=== PATIENT | female | born 1960 | race Two or more races ===

== ENCOUNTER 2019-12-21 13:34 | Outpatient (CLI) | payer MEDICAID ==
[2019-12-22] MEDS ORDERED: HYDROCHLOROTHIA25 MG ORAL (10:30)
[2019-12-22] MEDS ORDERED: SINGULAIR10 MG ORAL (10:30)
[2019-12-22] MEDS ORDERED: FAMOTIDINE20 MG ORAL (10:30)
[2019-12-22] MEDS ORDERED: AMLODIPINE BES2.5 MG ORAL (10:30)
[2019-12-22] MEDS ORDERED: PROVENTIL INH (10:30)
--- NOTE | 2019-12-26 08:25 | Consultation ---
DATE OF CONSULTATION: 12/21/2019 CONSULTING PHYSICIAN: Suresh Ng MD. CHIEF COMPLAINT: Rectal bleeding. PAST MEDICAL HISTORY: 1. History of uterine fibroids. 2. Hypertension. 3. Diabetes. 4. Asthma. 5. COPD. 6. Hypercholesterolemia. 7. Depression. PAST SURGICAL HISTORY: Cholecystectomy and . MEDICATIONS: Please see medication reconciliation list. FAMILY HISTORY: No family history of GI malignancy. SOCIAL HISTORY: The patient denies any tobacco or alcohol, but the patient smokes marijuana. ALLERGIES: . REVIEW OF SYSTEMS: Positive for diarrhea and rectal bleeding, never had a colonoscopy before. PHYSICAL EXAMINATION: VITAL SIGNS: Temperature 97.3. Vital signs stable. HEENT: Normocephalic and atraumatic. Sclerae are anicteric. NECK: Supple. No evidence of obvious lymphadenopathy. CARDIOVASCULAR: Regular rate and rhythm. Plus S1-S2. LUNGS: Clear to auscultation bilaterally. ABDOMEN: Positive bowel sounds. Soft and nontender. No rebound. No guarding. No peritoneal sign. EXTREMITIES: No cyanosis, no clubbing, no edema. ASSESSMENT AND PLAN: This is a 59-year-old female with rectal bleeding and abdominal pain. The patient needs to have a colonoscopy. At this time, she is refusing. Plan to send her stool studies to rule out infection. Start on VSL#3. The patient was given tramadol p.r.n. for pain. The patient was told to bring her records from other hospital admissions for review. Suresh Ng M.D. DR: BECKY JOB#: [id number] CC:
== END 2019-12-21 15:34 | disposition home or self-care (01) ==
LOC: PAN 13:34
DX: K62.5 Hemorrhage of anus and rectum (principal); I10 Essential (primary) hypertension; E11.9 Type 2 diabetes mellitus without complications; J44.9 Chronic obstructive pulmonary disease, unspecified; E78.00 Pure hypercholesterolemia, unspecified; F32.9 Major depressive disorder, single episode, unspecified; Z90.49 Acquired absence of other specified parts of digestive tract; F12.90 Cannabis use, unspecified, uncomplicated; R19.7 Diarrhea, unspecified
CPT/HCPCS: G0463